=== PATIENT | male | born 1995 | race African-American/Black ===

== ENCOUNTER 2022-01-07 07:39 | Emergency (ER) | payer OTHER ==
[~2022-01-07] VITALS: Ht 172.7 cm; Wt 54.4 kg
[2022-01-07 07:56] VITALS: BP 100/45
[2022-01-07] MEDS ORDERED: HYDR28CR68 TP (07:57)
== END 2022-01-07 08:01 | disposition home or self-care (01) ==
LOC: EDH 07:39
DX: S90.861A Insect bite (nonvenomous), right foot, initial encounter (principal); Y93.89 Activity, other specified; W57.XXXA Bitten or stung by nonvenomous insect and other nonvenomous arthropods, initial encounter; Y92.89 Other specified places as the place of occurrence of the external cause; Y99.8 Other external cause status; S90.862A Insect bite (nonvenomous), left foot, initial encounter

== ENCOUNTER 2023-01-08 10:32 | Emergency (ER) | payer OTHER ==
[~2023-01-08] VITALS: Ht 172.7 cm; Wt 61.2 kg
[~2023-01-08 10:32] MED LIST: HYDR28CR68 TP
[2023-01-08 10:45] VITALS: BP 110/55; PULSE 50; RESP 18
[2023-01-08] MEDS ORDERED: TETANUS/DIPHTHERIA TOXOID [ADULT] 0.5 ML VIAL IM ONE (13:00)
== END 2023-01-08 12:57 | disposition home or self-care (01) ==
LOC: EDH 10:32
DX: S01.81XA Laceration without foreign body of other part of head, initial encounter (principal); S09.90XA Unspecified injury of head, initial encounter; W01.0XXA Fall on same level from slipping, tripping and stumbling without subsequent striking against object, initial encounter; Y93.89 Activity, other specified; Y92.89 Other specified places as the place of occurrence of the external cause; Y99.8 Other external cause status
CPT/HCPCS: 12011; 70450; 70486; 90471; 90714